=== PATIENT | female | born 1970 | race Caucasian/White ===

== ENCOUNTER 2016-09-16 07:19 | Outpatient (CLI) | payer OTHER ==
[2016-09-16 08:34] LABS: eGFR (African) > 60; eGFR (Non-African) > 60
== END 2016-09-16 07:20 ==
LOC: LAB 07:19
PROVIDERS: ATTEND Family Medicine
DX: I10 Essential (primary) hypertension (principal); E11.9 Type 2 diabetes mellitus without complications
CPT/HCPCS: 36415; 80053; 80061; 82043; 83036

== ENCOUNTER 2016-09-20 16:13 | Outpatient (CLI) | payer OTHER | END 2016-09-20 16:20 | LOC: LAB 16:13 | PROVIDERS: ATTEND Family Medicine | DX: E03.9 Hypothyroidism, unspecified (principal) | CPT/HCPCS: 36415; 84443 ==

== ENCOUNTER 2017-10-23 07:20 | Outpatient (CLI) | payer OTHER ==
[2017-10-23 08:21] LABS: eGFR (African) > 60; eGFR (Non-African) > 60
== END 2017-10-23 07:22 ==
LOC: LAB 07:20
PROVIDERS: ATTEND Family Medicine
DX: E11.9 Type 2 diabetes mellitus without complications (principal); E03.9 Hypothyroidism, unspecified
CPT/HCPCS: 36415; 80053; 80061; 82043; 83036; 84443

== ENCOUNTER 2017-12-14 13:45 | Outpatient (CLI) | payer OTHER ==
[2017-12-14 14:30] LABS: eGFR (African) > 60; eGFR (Non-African) > 60
== END 2017-12-14 14:50 ==
LOC: LAB 13:45
PROVIDERS: ATTEND Family Medicine
DX: I10 Essential (primary) hypertension (principal)
CPT/HCPCS: 36415; 80053

== ENCOUNTER 2018-05-23 08:40 | Outpatient (CLI) | payer OTHER ==
[2018-05-23 09:35] LABS: eGFR (Non-African) > 60
--- NOTE | 2018-05-23 21:43 | Diagnostic Imaging Report ---
DARYN GOMES [facility] [address] [facility] [address] [address] Report Submission Date: May 23, 2018 11:19:22 AM CDT Patient Study Name: ELIEZER VALENCIA Date: May 23, 2018 9:55:39 AM CDT Modality Type: CT\SR Gender: F Description: CT ABD PELVIS W/ CON : 70 Institution: [facility] Physician: DARYN GOMES Examination: CT Abdomen/pelvis History: LOWER ABDOMINAL/PELVIC PAIN FOR SEVERAL MONTHS. PT STATES PAIN WORSE IN LAST FEW MONTHS, AND WORSE WITH MENSTRAL CYCLE (Hx) Comparison exams: None available Technique: CT Abdomen/pelvis with IV protocol. Findings: Liver it demonstrates diffuse low attenuation. Spleen, adrenals, pancreas, kidneys and gallbladder are without gross irregularity. No abnormal enhancement. No gallstone. No suspicious renal calcifications. Ureters are nondilated in their course through the abdomen and pelvis. No central calcifications. Bladder margin within normal limits. Abdominal aorta without aneurysm. Mild peripheral atherosclerotic disease. Cardiac silhouette is not enlarged. No pericardial effusion. Bowel unopacified limiting evaluation. No abnormal dilation. Stool within the large bowel limiting sensitivity. No mesenteric inflammatory changes or free fluid. Appendix not visualized. Osseous structures demonstrate degenerative changes. Lung bases without infiltrate. Right lower lung granuloma. No effusion. Impression: No acute upper abdominal organ inflammatory process. No abnormal bowel dilation or inflammation. Fatty liver. No gallstone. No suspicious renal calcifications or abnormal ureteric dilation. No lung base consolidation or effusion. Electronically signed on May 23, 2018 11:19:22 AM CDT by: Amilcar OLIVERA
== END 2018-05-23 08:42 ==
LOC: RAD 08:40
PROVIDERS: ATTEND Family Medicine
DX: R10.30 Lower abdominal pain, unspecified (principal)
CPT/HCPCS: 36415; 74177; 82565; Q9967

== ENCOUNTER 2018-06-28 19:02 | Emergency (ER) | payer SELFPAY ==
--- NOTE | 2018-06-28 19:15 | ED Physician Documentation ---
Foot Injury - HPI Stated Complaint: left foot pain Chief Complaint: Foot Injury Additional Information: Patient presents to the ED with after dropping a shelf across the dorsum of her left foot about 4 hours ago. 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 She went home and put ice on it but the pain has intensified. Onset: hours (4) Where: work Severity: moderate Context: direct blow Associated Symptoms:: swelling Further Comments: no - ROS CONST: denies: fever CVS/RESP: denies: chest pain, shortness of breath NEURO: denies: headache, head injury, dizziness GI/: denies: nausea, vomiting MS/SKIN/LYMPH: none - PAST HX Past History: none Allergies/Adverse Reactions: Allergies Allergy/AdvReac Type Severity Reaction Status Date / Time No Known Drug Allergies Allergy Unverified 09/26/12 09:50 - SOCIAL HX Smoking History: non-smoker, quit less than 1 year Alcohol Use: none Drug Use: none - FAMILY HX Family History: none - REVIEWED ASSESSMENTS Nursing Assessment Reviewed: Yes Vitals Reviewed: Yes ED Results Lab/Radiology - Radiology Radiology Impressions: Left foot History: Pain in the 1st MTP joint. Dropped a metal object on her foot today Three views of the left foot were obtained which demonstrate a moderate hallux valgus deformity. Mineralization is normal. Mild degenerative findings of the 2nd metatarsal tarsal joint space are noted. There is no evidence for acute fracture or dislocation. There is a small dorsal and moderate-sized plantar calcaneal spur. Impression: No evidence for acute fracture or dislocation. Moderate hallux valgus deformity. Mild degenerative findings of the 2nd metatarsal tarsal joint space. Calcaneal spurring as described Electronically signed on Jun 28, 2018 7:42:30 PM CDT by: Linda Bello Foot Injury Physical Exam - Physical Exam General Appearance: no acute distress, alert Foot: left foot: abrasions/lacerations (abrasion at PIP joint), bone tenderness, ecchymosis, pain, soft tissue tenderness, swelling Ankle: left: non-tender, normal inspection Gait: limited by pain Neuro: sensation nml, motor nml Vascular: no vascular compromise, dorsalis pedis, post. tibial. No: pallor, cool skin, abnml cap refill Tendons: tendon function nml. No: tendon visualized Leg/Knee/Thigh: uninjured above ankle Skin: intact, warm Head/ENT: nml inspection Neck/Back: nml inspection Resp/CVS: chest non-tender, breath sounds nml, heart sounds nml Abdomen: non-tender, pelvis stable Discharge Clincal Impression: Left foot pain Referrals: Mike Espinoza MD [Primary Care Provider] - 2 Days Additional Instructions: Keep foot elevated. Use ice as needed. Tylenol and/or ibuprofen as needed for pain. Condition: Stable Disposition: 01 HOME, SELF-CARE Decision to Admit: NO Date of Decison to Admit: 06/28/18 Decision Time: 19:46
[2018-06-28 19:28] VITALS: BP 149/81
--- NOTE | 2018-06-29 07:39 | Diagnostic Imaging Report ---
MANDA GARCIA [facility] [address] [facility] [address] [address] Report Submission Date: Jun 28, 2018 7:42:30 PM CDT Patient Study Name: ELIEZER VALENCIA Date: Jun 28, 2018 7:15:02 PM CDT Modality Type: DX Gender: F Description: LOWER EXTREMITY : 70 Institution: [facility] Physician: MANDA GARCIA Left foot History: Pain in the 1st MTP joint. Dropped a metal object on her foot today Three views of the left foot were obtained which demonstrate a moderate hallux valgus deformity. Mineralization is normal. Mild degenerative findings of the 2nd metatarsal tarsal joint space are noted. There is no evidence for acute fracture or dislocation. There is a small dorsal and moderate-sized plantar calcaneal spur. Impression: No evidence for acute fracture or dislocation. Moderate hallux valgus deformity. Mild degenerative findings of the 2nd metatarsal tarsal joint space. Calcaneal spurring as described Electronically signed on Jun 28, 2018 7:42:30 PM CDT by: Linda OLIVERA
== END 2018-06-28 20:04 | disposition home or self-care (01) ==
LOC: ED 19:02
DX: M79.672 Pain in left foot (principal)
CPT/HCPCS: 73630; 99282

== ENCOUNTER 2018-07-18 11:31 | Outpatient (CLI) | payer OTHER ==
[2018-07-18 12:14] LABS: eGFR (Non-African) > 60
== END 2018-07-18 11:33 ==
LOC: LAB 11:31
PROVIDERS: ATTEND Family Medicine
DX: I48.91 Unspecified atrial fibrillation (principal); E03.9 Hypothyroidism, unspecified; E11.9 Type 2 diabetes mellitus without complications
CPT/HCPCS: 36415; 80048; 84439; 84443; 84481

== ENCOUNTER 2019-03-19 15:51 | Outpatient (CLI) | payer OTHER ==
[2019-03-19 16:17] LABS: A1C 10.4 % (<5.7)
[2019-03-19 17:08] LABS: eGFR (Non-African) > 60
[2019-03-19 17:09] LABS: HDL 101 mg/dL (>40)
== END 2019-03-19 15:53 ==
LOC: LAB 15:51
PROVIDERS: ATTEND Family Medicine
DX: E03.9 Hypothyroidism, unspecified (principal)
CPT/HCPCS: 36415; 80053; 80061; 83036; 84443

== ENCOUNTER 2019-03-21 10:26 | Outpatient (CLI) | payer OTHER ==
--- NOTE | 2019-03-21 19:40 | Diagnostic Imaging Report ---
DARYN GOMES [facility] [address] [facility] [address] [address] Report Submission Date: Mar 21, 2019 11:28:13 AM CDT Patient Study Name: ELIEZER VALENCIA Date: Mar 21, 2019 10:35:30 AM CDT Modality Type: DX Gender: F Description: WRIST 3 VIEWS OR MORE : 70 Institution: [facility] Physician: DARYN GOMES Exam: Left wrist. History: Pain for 3 weeks. PA, lateral and oblique view of the left wrist are submitted. No signs of acute fracture or dislocation is seen. No bony erosions are seen. Mild degenerate changes at the 1st carpometacarpal joint is noted. Negative ulnar variance is identified. Impression: No acute fracture. Degenerative changes at the 1st carpometacarpal joint. Negative ulnar variance. Electronically signed on Mar 21, 2019 11:28:13 AM CDT by: Jd OLIVERA
== END 2019-03-21 10:28 ==
LOC: RAD 10:26
PROVIDERS: ATTEND Family Medicine
DX: M25.532 Pain in left wrist (principal)
CPT/HCPCS: 73110

== ENCOUNTER 2019-06-16 11:07 | Emergency (ER) | payer OTHER ==
--- NOTE | 2019-06-16 11:22 | ED Physician Documentation ---
Lower Extremity Injury - HISTORIAN Historian: patient - HPI Stated Complaint: right hip pain Chief Complaint: Hip Pain Onset: days ago (1) Where: home Severity: moderate Context: twist Associated Symptoms:: popping sensation. denies: unable to bear weight Modifying Factors:: pain on movement - ROS CONST: no problems - PAST HX Past History: A-Fib Immunizations: UTD Allergies/Adverse Reactions: Allergies Allergy/AdvReac Type Severity Reaction Status Date / Time No Known Drug Allergies Allergy Verified 06/16/19 11:18 Home Medications: Ambulatory Orders Medication Instructions Recorded Furosemide [Lasix] 20 mg PO DAILY 06/16/19 Metoprolol Succinate [Toprol Xl] 50 mg PO DAILY 06/16/19 - SOCIAL HX Smoking History: non-smoker - FAMILY HX Family History: none - VITAL SIGNS Vital Signs: Vital Signs Temp Pulse Resp BP Pulse Ox 97.3 F L 75 19 178/86 98 06/16/19 12:25 06/16/19 12:25 06/16/19 12:25 06/16/19 12:25 06/16/19 12:25 - REVIEWED ASSESSMENTS Nursing Assessment Reviewed: Yes Vitals Reviewed: Yes Progress - Progress Progress: 1215: pain is slightly improved. Discussed plan DG ED Results Lab/Radiology - Radiology Radiology Impressions: Right hip 2 views Clinical history twisting injury Technique AP frog leg Findings: There is osteopenia for age. Degenerative right is present the sacroiliac joint in the right hip. No displaced fracture is identified.. There is a small spur arising from the ischial tuberosity and spurs arise from the greater trochanter. Consider CT or MRI for further evaluation Electronically signed on Jun 16, 2019 11:50:34 AM CDT by: Baltazar Washington - Orders Orders: ED Orders Category Date Time Status RT HIP 2VIEW COMPLETE [RAD] Stat Exams 06/16/19 Taken URINE HCG Stat Lab 06/16/19 11:32 Received Orphenadrine Citrate [Norflex] Med 06/16/19 11:34 Discontinued 60 mg IM NOW ONE fentaNYL CITRATE/PF [Sublimaze] Med 06/16/19 11:34 Discontinued 50 mcg IM NOW ONE Lower Extremities Injury Phy - Physical Exam General Appearance: no acute distress Hips: right hip: bone tenderness, limited range of motion, pain, soft tissue tenderness, left hip: non-tender, bilateral hip: normal inspection, normal range of motion, no evidence of injury, N/A: deformity, swelling Gait: limited by pain Neuro/Vascular/Tendon: no vascular compromise Head/ENT: nml inspection Neck/Back: nml inspection Resp/CVS: chest non-tender, breath sounds nml, heart sounds nml, no resp. distress, lungs clear, reg. rate & rhythm Abdomen: non-tender Discharge Clincal Impression: Right hip pain Referrals: Mike Espinoza MD [Primary Care Provider] - 2 Days Comments: 1. Tramadol 50 mg take 1 by mouth every 12 hours as needed for pain 2. Rest 3. Follow up with PCP in 2 days 4. Return to ER for any increasing concerns Condition: Stable Disposition: 01 HOME, SELF-CARE Decision to Admit: NO Date of Decison to Admit: 06/16/19 Decision Time: 12:20
[2019-06-16 11:23] VITALS: BP 178/86
[2019-06-16] MEDS ORDERED: ORPHENADRINE CITRATE 60 MG/2 ML ML IM ONE (11:34)
[2019-06-16] MEDS ORDERED: fentaNYL CITRATE/PF 100 MCG/2 ML INJ. IM ONE (11:34)
== END 2019-06-16 12:28 | disposition home or self-care (01) ==
LOC: ED 11:07
DX: M25.551 Pain in right hip (principal)
CPT/HCPCS: 73502; 81025; 96372; 99284; J2360